=== PATIENT | male | born 1985 | race African-American/Black ===

== ENCOUNTER 2017-08-11 19:18 | Emergency (ER) | payer BC ==
--- NOTE | 2017-08-11 19:51 | EDM.PDOC ---
ED HPI GENERAL MEDICAL PROBLEM - General Chief Complaint: Chest Pain Stated Complaint: CHEST PAIN Time Seen by Provider: 08/11/17 19:50 - History of Present Illness INITIAL COMMENTS - FREE TEXT/NARRATIVE: 31-year-old male presents emergency room with chest pain. This pain started roughly 2 hours ago. Patient was resting when it started he's been resting all weekend last time he ate was around 2:00 this afternoon. Patient has no prior history of heart problems or any other medical problems 5 matter patient has had intermittent episodes of chest pain like this in the past but nothing quite this severe these are aggravated by deep breathing and change of position. The pain is primarily on the left side of the chest does not have crushing a pressure sensation to it is not associated with nausea vomiting does not radiate into the arms or neck. Past medical history is unremarkable mid-epigastric pain Pain Score (Numeric/FACES): 8 - Related Data Allergies Allergy/AdvReac Type Severity Reaction Status Date / Time No Known Allergies Allergy Verified 08/11/17 19:41 Home Meds: Home Meds Famotidine [Pepcid] 20 mg PO BID #60 tablet 08/11/17 [Rx] Sucralfate [Carafate] 1 gm PO QIDACANDBED #30 tablet 08/11/17 [Rx] Past Medical History - Past Health History Medical/Surgical History: Denies Medical/Surgical History Social & Family History - Family History Family Medical History: Noncontributory - Tobacco Use Smoking Status *Q: Current Some Day Smoker Years of Tobacco use: 5 Packs/Tins Daily: 0.1 Used Tobacco, but Quit: No - Caffeine Use Caffeine Use: Reports: Coffee - Recreational Drug Use Recreational Drug Use: No ED ROS GENERAL - Review of Systems Review Of Systems: See Below Constitutional: Reports: No Symptoms HEENT: Reports: No Symptoms Respiratory: Reports: No Symptoms GI/Abdominal: Reports: No Symptoms : Reports: No Symptoms Neurological: Reports: No Symptoms ED EXAM, GENERAL - Physical Exam Exam: See Below Exam Limited By: No Limitations General Appearance: Alert, No Apparent Distress Head: Atraumatic, Normocephalic Neck: Normal Inspection, Supple, Non-Tender, Full Range of Motion Respiratory/Chest: No Respiratory Distress, Lungs Clear, Normal Breath Sounds Cardiovascular: Regular Rate, Rhythm, No Edema, No Murmur GI/Abdominal: Normal Bowel Sounds, Soft, Non-Tender Back Exam: Normal Inspection. No: CVA Tenderness (L), CVA Tenderness (R) Extremities: Normal Inspection, No Pedal Edema, Other (Left upper extremity especially overhead tends to aggravate his chest discomfort) EKG INTERPRETATION EKG Date: 08/11/17 Rhythm: NSR [place]: Normal P-Wave: Present QRS: Normal Comparison: NA - No Prior EKG Course - Vital Signs Last Recorded V/S: Last Vital Signs Temp 36.6 C 08/11/17 19:25 Pulse 71 08/11/17 19:25 Resp 18 08/11/17 19:25 BP 137/94 H 08/11/17 19:25 Pulse Ox 100 08/11/17 19:25 - Orders/Labs/Meds Orders: Active Orders 24 hr Category Date Time Status EKG Documentation Completion [RC] STAT Care 08/11/17 19:44 Active Chest 2V [CR] Stat Exams 08/11/17 20:03 Taken Labs: Laboratory Tests 08/11/17 08/11/17 08/11/17 Range/Units 20:15 20:15 20:15 WBC 4.81 (4.23-9.07) K/mm3 RBC 5.09 (4.63-6.08) M/mm3 Hgb 15.4 (13.7-17.5) gm/L Hct 43.2 (40.1-51.0) % MCV 84.9 (79.0-92.2) fl MCH 30.3 (25.7-32.2) pg MCHC 35.6 H (32.2-35.5) g/dl RDW Std Deviation 38.6 (35.1-43.9) fL Plt Count 161 L (163-337) K/mm3 MPV 10.4 (9.4-12.3) fl Neutrophils % (Manual) 48 (40-60) % Band Neutrophils % 0 (0-10) % Lymphocytes % (Manual) 33 (20-40) % Atypical Lymphs % 0 % Monocytes % (Manual) 10 (2-10) % Eosinophils % (Manual) 8 H (0.8-7.0) % Basophils % (Manual) 1 (0.2-1.2) Platelet Estimate Adequate RBC Morph Comment Normal ESR 10 (0-15) mm/hr Sodium 142 (136-145) mEq/L Potassium 4.3 (3.5-5.1) mEq/L Chloride 108 H (98-107) mEq/L Carbon Dioxide 30 (21-32) mEq/L Anion Gap 8.3 (5-15) BUN 17 (7-18) mg/dL Creatinine 1.1 (0.7-1.3) mg/dL Est Cr Clr Drug Dosing 85.11 mL/min Estimated GFR (MDRD) > 60 (>60) mL/min BUN/Creatinine Ratio 15.5 (14-18) Glucose 90 (74-106) mg/dL Calcium 9.6 (8.5-10.1) mg/dL Total Bilirubin 0.5 (0.2-1.0) mg/dL AST 19 (15-37) U/L ALT 24 (16-63) U/L Alkaline Phosphatase 50 (46-116) U/L Troponin I < 0.017 (0.00-0.056) ng/mL Total Protein 7.7 (6.4-8.2) g/dl Albumin 4.0 (3.4-5.0) g/dl Globulin 3.7 gm/dL Albumin/Globulin Ratio 1.1 (1-2) Meds: Medications Discontinued Medications Generic Name Dose Route Start Last Admin Trade Name Freq PRN Reason Stop Dose Admin Al Hydroxide/Mg Hydroxide 30 0 ml 08/11/17 20:07 08/11/17 20:13 ml/ Lidocaine HCl 15 ml PO 08/11/17 20:08 45 ml ONETIME ONE Administration Sucralfate 1 gm 08/11/17 20:43 08/11/17 21:49 Carafate PO 08/11/17 20:44 1 gm ONETIME ONE Administration - Re-Assessments/Exams Free Text/Narrative Re-Assessment/Exam: 08/11/17 20:36 Labs pending. Two-view chest normal EKG shows no acute changes essentially normal EKG. The patient was given a GI cocktail and did have some improvement with this. 08/11/17 22:05 Patient had continued improvement and further improvement following some Carafate he'll be discharged on Carafate and Pepcid. Departure - Departure Time of Disposition: 22:06 Disposition: Home, Self-Care 01 Clinical Impression: Dyspepsia Prescriptions: Famotidine [Pepcid] 20 mg PO BID #60 tablet Sucralfate [Carafate] 1 gm PO QIDACANDBED #30 tablet Referrals: PCP,None [Primary Care Provider] - Forms: ED Department Discharge Additional Instructions: Return to the emergency room with any questions problems worsening symptoms.. Follow-up in the Hospital clinic early this next week for recheck [phone] You've been started on 2 medications one of them is Pepcid this can be obtained [id number] generic name is famotidine. Take 20 mg twice daily for 2 weeks then take 1 daily after. The second medication is Carafate take this 4 times a day before each meal and at bedtime you will take this for a week and then stop this. Take your other medications at least 1 hour before or 2 hours after taking the Carafate. - My Orders Last 24 Hours: My Active Orders 08/11/17 19:44 EKG Documentation Completion [RC] STAT 08/11/17 20:03 Chest 2V [CR] Stat - Assessment/Plan Last 24 Hours: My Active Orders 08/11/17 19:44 EKG Documentation Completion [RC] STAT 08/11/17 20:03 Chest 2V [CR] Stat
[2017-08-11] MEDS ORDERED: Alum Hydrox/Mag Hydrox/Simeth 30 ML, Lidocaine 2% 15 ML PO ONE ×2 (20:07)
[2017-08-11] MEDS ORDERED: Sucralfate Suspension 1 GM/10 ML Cup PO ONE (20:43)
--- NOTE | 2017-08-12 07:25 | CR ---
Chest: Two views of the chest were obtained. Comparison: No prior study. Heart size and mediastinum are within normal limits. Lungs are clear. Slight deformity of the right clavicle is seen compatible with old healed fracture. No acute bony abnormality is seen. Impression: 1. Incidental finding. Nothing acute is identified on two-view chest x-ray. Diagnostic code #2
== END 2017-08-11 22:22 | disposition home or self-care (01) ==
LOC: JD.ED 19:18
DX: R10.13 Epigastric pain (principal); F17.210 Nicotine dependence, cigarettes, uncomplicated
CPT/HCPCS: 36415; 71020; 80053; 84484; 85025; 85652; 93005; 99285; A9270; 93010; 99284-25